=== PATIENT | male | born 2000 | race Caucasian/White ===

== ENCOUNTER 2020-04-12 22:39 | Emergency (ER) | payer OTHER ==
[2020-04-12] MEDS ORDERED: Zofran 4 MG/2 ML VIAL IV ONE (23:06)
[2020-04-12] MEDS ORDERED: Sodium Chloride 0.9% 1000 ML 1,000 ML IV STA ×2 (23:06→23:50)
[2020-04-12] MEDS ORDERED: Pepcid 20 MG VIAL IV ONE ×2 (23:10→23:32)
--- NOTE | 2020-04-12 23:10 | ERPHSYRPT ---
- History of Present Illness Time Seen by Provider: 04/12/20 23:08 Historian: patient, family Exam Limitations: no limitations Patient Subjective Stated Complaint: pt states that he began to have nausea, vomiting, diarrhea and abd pain on wednesday, pt states that he has had symptoms that comes and goes all week, pt states that he has abd pain right under the sternum, pt states that it feels like he has heartburn along with it Triage Nursing Assessment: pt ambulated into the er, pt is axo x3, c/o N,V,D and abd pressure under sternum, hypoactive bowel sounds in all quads, soft, obese abd, hypertensive, afebrile Physician History: pt states that he began to have nausea, vomiting, diarrhea and abd pain on wednesday, pt states that he has had symptoms that comes and goes all week, pt states that he has abd pain right under the sternum, pt states that it feels like he has heartburn along with it Timing/Duration: today Activities at Onset: none Quality: cramping Abdominal Pain Onset Location: epigastric Pain Radiation: no radiation Modifying Factors: Improves With: antacids Associated Symptoms: nausea, vomiting Previous symptoms: no prior history Allergies/Adverse Reactions: erythromycin base [Erythromycin Base] Allergy (Verified 04/12/20 23:06) RASH latex Allergy (Verified 04/12/20 23:06) Home Medications: Escitalopram Oxalate [Lexapro] 20 mg PO DAILY 04/12/20 [History] Hx Tetanus, Diphtheria Vaccination/Date Given: Yes Hx Influenza Vaccination/Date Given: No Hx Pneumococcal Vaccination/Date Given: No Travel Risk - International Travel Have you traveled outside of the country in past 3 weeks: No - Coronavirus Screening Are you exhibiting any of the following symptoms?: Yes Symptoms: Vomiting/Diarrhea Close contact with a COVID-19 positive Pt in past 14-21 Days: No - Review of Systems Constitutional: No Fever, No Chills Eyes: No Symptoms Ears, Nose, & Throat: No Symptoms Respiratory: No Cough, No Dyspnea Cardiac: No Chest Pain, No Edema, No Syncope Abdominal/Gastrointestinal: Abdominal Pain, Nausea, Vomiting, Diarrhea Genitourinary Symptoms: No Dysuria Musculoskeletal: No Back Pain, No Neck Pain Skin: No Rash Neurological: No Dizziness, No Focal Weakness, No Sensory Changes Psychological: No Symptoms Endocrine: No Symptoms All Other Systems: Reviewed and Negative - Past Medical History Pertinent Past Medical History: Yes Neurological History: No Pertinent History ENT History: No Pertinent History Cardiac History: No Pertinent History Respiratory History: No Pertinent History Endocrine Medical History: No Pertinent History Musculoskeletal History: No Pertinent History GI Medical History: Irritable Bowel Psycho-Social History: Anxiety, Depression, Other Other Medical History: PTSD - Past Surgical History Past Surgical History: No Neuro Surgical History: No Pertinent History Musculoskeletal: No Pertinent History - Social History Smoking Status: Never smoker Exposure to second hand smoke: No Drug Use: none Patient Lives Alone: No - Nursing Vital Signs Nursing Vital Signs: Initial Vital Signs Temperature 97.8 F 04/12/20 22:44 Pulse Rate 103 H 04/12/20 22:44 Respiratory Rate 18 04/12/20 22:44 Blood Pressure 164/104 04/12/20 22:44 O2 Sat by Pulse Oximetry 94 L 04/12/20 22:44 Pain Scale Pain Intensity 0 - Physical Exam General Appearance: no apparent distress, alert Eye Exam: PERRL/EOMI, eyes nml inspection Ears, Nose, Throat Exam: normal ENT inspection, pharynx normal, moist mucous membranes Neck Exam: normal inspection, non-tender, supple, full range of motion Respiratory Exam: normal breath sounds, lungs clear, No respiratory distress Cardiovascular Exam: regular rate/rhythm, normal heart sounds Gastrointestinal/Abdomen Exam: soft, No tenderness, No mass Back Exam: normal inspection, normal range of motion, No CVA tenderness, No vertebral tenderness Extremity Exam: normal inspection, normal range of motion, pelvis stable Neurologic Exam: alert, oriented x 3, cooperative, normal mood/affect, nml cerebellar function, sensation nml, No motor deficits Skin Exam: normal color, warm, dry SpO2: 94 - Course Nursing assessment & vital signs reviewed: Yes Ordered Tests: Active Orders 24 hr Category Date Time Status Surg Physician Asst STAT Care 04/12/20 22:59 Active Clean Catch Urine Specimen STAT Care 04/12/20 23:00 Active EKG-ER Only STAT Care 04/12/20 22:59 Active IV Insertion STAT Care 04/12/20 22:59 Active OBSTR/ACUTE ABDOMEN SERIES Stat Exams 04/12/20 23:07 Taken AMYLASE Stat Lab 04/12/20 23:00 Completed CBC W DIFF Stat Lab 04/12/20 23:00 Completed CMP Stat Lab 04/12/20 23:00 Completed D-DIMER QUANTITATIVE Stat Lab 04/12/20 23:00 Completed LIPASE Stat Lab 04/12/20 23:00 Completed Lactic Acid Stat Lab 04/12/20 23:00 Completed TROPONIN Q3H Lab 04/12/20 23:00 Completed UA W/RFX UR CULTURE Stat Lab 04/12/20 23:00 Completed Urine Triage Profile Stat Lab 04/12/20 23:00 Completed Medication Summary Generic Name Dose Route Start Last Admin Trade Name Freq PRN Reason Stop Dose Admin Sodium Chloride 1,000 mls @ 999 mls/hr 04/12/20 23:06 04/12/20 23:33 Sodium Chloride 0.9% 1000 Ml IV 04/13/20 00:06 999 mls/hr .Q1H1M STA Administration Sodium Chloride 1,000 mls @ 999 mls/hr 04/12/20 23:50 Sodium Chloride 0.9% 1000 Ml IV 04/13/20 00:50 .Q1H1M STA Discontinued Medications Generic Name Dose Route Start Last Admin Trade Name Freq PRN Reason Stop Dose Admin Famotidine 20 mg 04/12/20 23:10 04/12/20 23:33 Pepcid 20 Mg Vial IV 04/12/20 23:11 20 mg STAT ONE Administration Famotidine Confirm 04/12/20 23:32 Pepcid 20 Mg Vial Administered 04/12/20 23:33 Dose 20 mg IV .STK-MED ONE Sodium Chloride Confirm 04/12/20 23:32 Sodium Chloride 0.9% 1000 Ml Administered 04/12/20 23:33 Dose 1,000 mls @ ud .ROUTE .STK-MED ONE Ondansetron HCl 4 mg 04/12/20 23:06 04/12/20 23:32 Zofran 4 Mg/2 Ml Vial IV 04/12/20 23:07 4 mg STAT ONE Administration Ondansetron HCl Confirm 04/12/20 23:32 Zofran 4 Mg/2 Ml Vial Administered 04/12/20 23:33 Dose 4 mg .ROUTE .STK-MED ONE Lab/Rad Data: Laboratory Result Diagrams 04/12/20 23:00 04/12/20 23:00 Laboratory Results 04/12/20 04/12/20 04/12/20 Range/Units 23:00 23:00 23:00 WBC (4.0-10.5) K/mm3 RBC (4.1-5.6) M/mm3 Hgb (12.5-18.0) gm/dl Hct (42-50) % MCV (78-100) fl MCH (26-32) pg MCHC (32-36) g/dl RDW (11.5-14.0) % Plt Count (150-450) K/mm3 MPV (7.5-11.0) fl Gran % (36.0-66.0) % Eos # (Auto) (0-0.5) Absolute Lymphs (auto) (1.0-4.6) Absolute Monos (auto) (0.0-1.3) Lymphocytes % (24.0-44.0) % Monocytes % (0.0-12.0) % Eosinophils % (0.00-5.0) % Basophils % (0.0-0.4) % Absolute Granulocytes (1.4-6.9) Basophils # (0-0.4) D-Dimer (215-500) ng/mL Sodium (137-145) mmol/L Potassium (3.5-5.1) mmol/L Chloride (98-107) mmol/L Carbon Dioxide (22-30) mmol/L Anion Gap (5-15) MEQ/L BUN (9-20) mg/dL Creatinine (0.66-1.25) mg/dL Estimated GFR ML/MIN Glucose (74-106) mg/dL Lactic Acid (0.4-2.0) Calcium (8.4-10.2) mg/dL Total Bilirubin (0.2-1.3) mg/dL AST (17-59) U/L ALT (0-50) U/L Alkaline Phosphatase (38-126) U/L Troponin I (0.000-0.034) ng/mL Serum Total Protein (6.3-8.2) g/dL Albumin (3.5-5.0) g/dL Amylase 57 (30-110) U/L Lipase 38 (23-300) U/L Urine Color YELLOW (YELLOW) Urine Appearance CLEAR (CLEAR) Urine pH 6.0 (5-6) Ur Specific [place] 1.031 (1.005-1.025) Urine Protein 30 (Negative) Urine Ketones NEGATIVE (NEGATIVE) Urine Blood NEGATIVE (0-5) Mike/ul Urine Nitrite NEGATIVE (NEGATIVE) Urine Bilirubin NEGATIVE (NEGATIVE) Urine Urobilinogen 4 (0-1) mg/dL Ur Leukocyte Esterase NEGATIVE (NEGATIVE) Urine WBC (Auto) NONE (0-5) /HPF Urine RBC (Auto) NONE (0-2) /HPF U Epithel Cells (Auto) NONE (FEW) /HPF Urine Bacteria (Auto) NONE (NEGATIVE) /HPF Urine Mucus (Auto) SLIGHT (NEGATIVE) /HPF Urine Culture Reflexed NO (NO) Urine Glucose NEGATIVE (NEGATIVE) mg/dL Urine Opiates Level NEGATIVE (NEGATIVE) Ur Methadone NEGATIVE (NEGATIVE) Urine Barbiturates NEGATIVE (NEGATIVE) Ur Phencyclidine (PCP) NEGATIVE (NEGATIVE) Urine Amphetamine NEGATIVE (NEGATIVE) U Benzodiazepine Level NEGATIVE (NEGATIVE) Urine Cocaine NEGATIVE (NEGATIVE) Urine Marijuana (THC) NEGATIVE (NEGATIVE) 04/12/20 04/12/20 04/12/20 Range/Units 23:00 23:00 23:00 WBC (4.0-10.5) K/mm3 RBC (4.1-5.6) M/mm3 Hgb (12.5-18.0) gm/dl Hct (42-50) % MCV (78-100) fl MCH (26-32) pg MCHC (32-36) g/dl RDW (11.5-14.0) % Plt Count (150-450) K/mm3 MPV (7.5-11.0) fl Gran % (36.0-66.0) % Eos # (Auto) (0-0.5) Absolute Lymphs (auto) (1.0-4.6) Absolute Monos (auto) (0.0-1.3) Lymphocytes % (24.0-44.0) % Monocytes % (0.0-12.0) % Eosinophils % (0.00-5.0) % Basophils % (0.0-0.4) % Absolute Granulocytes (1.4-6.9) Basophils # (0-0.4) D-Dimer < 215 L (215-500) ng/mL Sodium (137-145) mmol/L Potassium (3.5-5.1) mmol/L Chloride (98-107) mmol/L Carbon Dioxide (22-30) mmol/L Anion Gap (5-15) MEQ/L BUN (9-20) mg/dL Creatinine (0.66-1.25) mg/dL Estimated GFR ML/MIN Glucose (74-106) mg/dL Lactic Acid 2.3 H (0.4-2.0) Calcium (8.4-10.2) mg/dL Total Bilirubin (0.2-1.3) mg/dL AST (17-59) U/L ALT (0-50) U/L Alkaline Phosphatase (38-126) U/L Troponin I < 0.012 (0.000-0.034) ng/mL Serum Total Protein (6.3-8.2) g/dL Albumin (3.5-5.0) g/dL Amylase (30-110) U/L Lipase (23-300) U/L Urine Color (YELLOW) Urine Appearance (CLEAR) Urine pH (5-6) Ur Specific [place] (1.005-1.025) Urine Protein (Negative) Urine Ketones (NEGATIVE) Urine Blood (0-5) Mike/ul Urine Nitrite (NEGATIVE) Urine Bilirubin (NEGATIVE) Urine Urobilinogen (0-1) mg/dL Ur Leukocyte Esterase (NEGATIVE) Urine WBC (Auto) (0-5) /HPF Urine RBC (Auto) (0-2) /HPF U Epithel Cells (Auto) (FEW) /HPF Urine Bacteria (Auto) (NEGATIVE) /HPF Urine Mucus (Auto) (NEGATIVE) /HPF Urine Culture Reflexed (NO) Urine Glucose (NEGATIVE) mg/dL Urine Opiates Level (NEGATIVE) Ur Methadone (NEGATIVE) Urine Barbiturates (NEGATIVE) Ur Phencyclidine (PCP) (NEGATIVE) Urine Amphetamine (NEGATIVE) U Benzodiazepine Level (NEGATIVE) Urine Cocaine (NEGATIVE) Urine Marijuana (THC) (NEGATIVE) 04/12/20 04/12/20 Range/Units 23:00 23:00 WBC 11.2 H (4.0-10.5) K/mm3 RBC 5.25 (4.1-5.6) M/mm3 Hgb 15.4 (12.5-18.0) gm/dl Hct 45.6 (42-50) % MCV 86.9 (78-100) fl MCH 29.3 (26-32) pg MCHC 33.8 (32-36) g/dl RDW 13.4 (11.5-14.0) % Plt Count 280 (150-450) K/mm3 MPV 11.4 H (7.5-11.0) fl Gran % 60.5 (36.0-66.0) % Eos # (Auto) 0.17 (0-0.5) Absolute Lymphs (auto) 3.44 (1.0-4.6) Absolute Monos (auto) 0.78 (0.0-1.3) Lymphocytes % 30.7 (24.0-44.0) % Monocytes % 7.0 (0.0-12.0) % Eosinophils % 1.5 (0.00-5.0) % Basophils % 0.3 (0.0-0.4) % Absolute Granulocytes 6.77 (1.4-6.9) Basophils # 0.03 (0-0.4) D-Dimer (215-500) ng/mL Sodium 139 (137-145) mmol/L Potassium 3.9 (3.5-5.1) mmol/L Chloride 106 (98-107) mmol/L Carbon Dioxide 23 (22-30) mmol/L Anion Gap 13.5 (5-15) MEQ/L BUN 13 (9-20) mg/dL Creatinine 0.83 (0.66-1.25) mg/dL Estimated GFR > 60.0 ML/MIN Glucose 146 H (74-106) mg/dL Lactic Acid (0.4-2.0) Calcium 9.0 (8.4-10.2) mg/dL Total Bilirubin 0.70 (0.2-1.3) mg/dL AST 41 (17-59) U/L ALT 48 (0-50) U/L Alkaline Phosphatase 97 (38-126) U/L Troponin I (0.000-0.034) ng/mL Serum Total Protein 7.8 (6.3-8.2) g/dL Albumin 4.5 (3.5-5.0) g/dL Amylase (30-110) U/L Lipase (23-300) U/L Urine Color (YELLOW) Urine Appearance (CLEAR) Urine pH (5-6) Ur Specific [place] (1.005-1.025) Urine Protein (Negative) Urine Ketones (NEGATIVE) Urine Blood (0-5) Mike/ul Urine Nitrite (NEGATIVE) Urine Bilirubin (NEGATIVE) Urine Urobilinogen (0-1) mg/dL Ur Leukocyte Esterase (NEGATIVE) Urine WBC (Auto) (0-5) /HPF Urine RBC (Auto) (0-2) /HPF U Epithel Cells (Auto) (FEW) /HPF Urine Bacteria (Auto) (NEGATIVE) /HPF Urine Mucus (Auto) (NEGATIVE) /HPF Urine Culture Reflexed (NO) Urine Glucose (NEGATIVE) mg/dL Urine Opiates Level (NEGATIVE) Ur Methadone (NEGATIVE) Urine Barbiturates (NEGATIVE) Ur Phencyclidine (PCP) (NEGATIVE) Urine Amphetamine (NEGATIVE) U Benzodiazepine Level (NEGATIVE) Urine Cocaine (NEGATIVE) Urine Marijuana (THC) (NEGATIVE) - Progress Progress: improved Counseled pt/family regarding: lab results, diagnosis, need for follow-up, rad results - Departure Departure Disposition: Home Clinical Impression: Gastroenteritis and colitis, viral Condition: Stable Critical Care Time: No Referrals: ANIKA BLANCO CONTINUITY READER [NON-STAFF PHY W/O PRIVILEGES] - Instructions: Viral Gastroenteritis Additional Instructions: Discharge/Care Plan LEILANI PABLO was seen on 04/12/20 in the Emergency Room. The patient was counseled regarding Diagnosis,Lab results, Imaging studies, need for follow up and when to return to the Emergency Room. Prescriptions given: Discharge Note I have spoken with the patient and/or caregivers. I have explained the patient's condition, diagnosis and treatment plan based on the information available to me at this time. I have answered the patient's and/or caregiver's questions and addressed any concerns. The patient and/or caregivers have as good understanding of the patient's diagnosis, condition and treatment plan as can be expected at this point. The vital signs have been stable. The patient's condition is stable and appropriate for discharge from the emergency department. The patient will pursue further outpatient evaluation with the primary care physician or other designated or consulting physician as outlined in the discharge instructions. The patient and/or caregivers are agreeable to this plan of care and follow-up instructions have been explained in detail. The patient and/or caregivers have received these instruction. The patient/and or caregivers are aware that any significant change in condition or worsening of symptoms should prompt an immediate return to this or the closest emergency department or call 911. LEILANI PABLO was seen on 04/12/20 n the Emergency Room. At that time you were treated for an emergent condition, during your visit Laboratory, Radiology and/or other procedures may have been ordered. It is very important that you follow-up with your Primary Care Physician ZULEYMA DANIEL within the next 24- 48 hours to review your Emergency Room visit and the final results of testing that was ordered. Some test results such as Urine Cultures, Blood Cultures, and other cultures if ordered will not be finalized for 24-48 hours. If you do not have a Primary Care Provider please call the medical records department at [phone] ext [phone] to obtain a copy of your results or you may sign into our patient portal to obtain these results by visiting us @ [email or web address] and completing the following steps: 1. Click on the Patient Portal link 2. Click the Patient Self Enrollment Link to complete the enrollment form and entering your 3. Once the enrollment form is completed you will receive an email with a temporary ID and password at the email address you provided. 4. Next choose a user name and password. Your user name must be at least 4 characters long and your password must be at least 4 characters long. 5. Choose a security question from the list and provide your answer to the question. If you already have signed into the Health Portal you may access your Health Care Information 19/04 by the following steps: 1. Login to our website @ [email or web address] 2. Enter your original user name and password. FAQS The [facility] Health Portal is an online tool that contains your Lab Results, Ra diology Reports, Visit History, Discharge Instructions and Health Summary Lab and Radiology Results will not be available for 72 hours on the portal. The Portal is a secure site, passwords are encryted and URLs are re-written so they cannot be copied and pasted. You and authorized family members are the only ones who can access your Portal. Also there is a timeout feature that protects your information if you leave the Portal page open. If you have technical difficulty please use the Contact Us link on the page this will allow you to submit any questions you have regarding the Portal or you may contact the Medical Record Department at [phone] ext [phone]. Prescriptions: Promethazine HCl 25 mg [Phenergan 25 mg] 25 mg PO QID #20 tablet
[2020-04-12 23:17] LABS: Absolute Neutrophil Ct (ANC) 6.77 (1.4-6.9); BASOPHIL % 0.3 % (0.0-0.4); Basophil (Absolute #) 0.03 (0-0.4); Eosinophil % 1.5 % (0.00-5.0); Eosinophil (Absolute #) 0.17 (0-0.5); Hematocrit 45.6 % (42-50); Hemoglobin 15.4 gm/dl (12.5-18.0); Lymphocyte (Absolute #) 3.44 (1.0-4.6); Lymphocytes % 30.7 % (24.0-44.0); Mean Cell Volume 86.9 fl (78-100); Mean Corpuscular Hemoglobin 29.3 pg (26-32); Mean Corpuscular Hgb Concent. 33.8 g/dl (32-36); Mean Platelet Volume 11.4 fl (7.5-11.0); Monocyte (Absolute #) 0.78 (0.0-1.3); Neutrophil % 60.5 % (36.0-66.0); Platelet Count 280 K/mm3 (150-450); Red Blood Count 5.25 M/mm3 (4.1-5.6); Red Cell Distribution Width 13.4 % (11.5-14.0); White Blood Count 11.2 K/mm3 (4.0-10.5)
[2020-04-12 23:28] LABS: Appearance CLEAR (CLEAR); Bilirubin NEGATIVE (NEGATIVE); Blood NEGATIVE Ery/ul (0-5); Glucose NEGATIVE (NEGATIVE); Ketones NEGATIVE (NEGATIVE); Leukocyte Esterase NEGATIVE (NEGATIVE); Mucus SLIGHT /HPF (NEGATIVE); Nitrite NEGATIVE (NEGATIVE); Protein,Urine Dip 30 (Negative); Specific Gravity 1.031 (1.005-1.025); Urobilinogen 4 mg/dL (0-1)
[2020-04-12] MEDS ORDERED: Zofran 4 MG/2 ML VIAL ONE (23:32)
[2020-04-12] MEDS ORDERED: Sodium Chloride 0.9% 1000 ML 1,000 ML ONE (23:32)
[2020-04-12 23:35] LABS: Amphetamine,Urine NEGATIVE (NEGATIVE); Barbiturate,Urine NEGATIVE (NEGATIVE); Benzodiazepine,Urine NEGATIVE (NEGATIVE); Cocaine,Urine NEGATIVE (NEGATIVE); Methadone,Urine NEGATIVE (NEGATIVE); Opiate,Urine NEGATIVE (NEGATIVE); PCP,Urine NEGATIVE (NEGATIVE); THC,Urine NEGATIVE (NEGATIVE)
[2020-04-12 23:36] LABS: AMYLASE 57 U/L (30-110); LIPASE 38 U/L (23-300)
[2020-04-12 23:38] LABS: ALBUMIN 4.5 g/dL (3.5-5.0); ALKALINE PHOSPHATASE 97 U/L (38-126); ANION GAP 13.5 MEQ/L (5-15); BLOOD UREA NITROGEN 13 mg/dL (9-20); CHLORIDE 106 mmol/L (98-107); Carbon Dioxide 23 mmol/L (22-30); Creatinine 1 0.83 mg/dL (0.66-1.25); Glucose 146 mg/dL (74-106); Potassium 3.9 mmol/L (3.5-5.1); SGOT/AST 41 U/L (17-59); SGPT/ALT 48 U/L (0-50); SODIUM 139 mmol/L (137-145); Total Protein 7.8 g/dL (6.3-8.2)
[2020-04-13 00:19] VITALS: BP 141/78; PULSE 74; O2SAT 99
--- NOTE | 2020-04-13 07:58 | XRAY ---
Indication: Epigastric pain and nausea. Reflux. Comparison: Chest exam June 06, 2014. 2 view abdomen nonacute and nonobstructed. Solid organs unremarkable. Osseous structures intact with minimal double curvature thoracolumbar scoliosis. Single frontal chest demonstrates normal heart, lungs, and bony thorax. Impression: Negative abdomen. Normal 1 view chest. Minimal scoliosis.
== END 2020-04-13 00:30 | disposition home or self-care (01) ==
LOC: ED 22:39
DX: A08.4 Viral intestinal infection, unspecified (principal)
CPT/HCPCS: 36000; 36415; 74022; 80053; 80307; 81001; 82150; 83605; 83690; 84484; 85025; 85379; 93005; 93041; 96360; 96374; 96375; 99284; J2405

== ENCOUNTER 2023-08-13 19:26 | Emergency (ER) | payer OTHER ==
[2023-08-13 19:36] VITALS: TEMP 98.2; O2SAT 95
[2023-08-13] MEDS ORDERED: VISTARIL 100MG/2ML IM ONE ×2 (19:43→19:46)
--- NOTE | 2023-08-13 19:54 | ERPHSYRPT ---
- History of Present Illness Source: patient Exam Limitations: no limitations Patient Subjective Stated Complaint: pt states "I have panic attacks from ptsd and today I took my ativan that I normally take at home for it and it hasn't helped." Triage Nursing Assessment: pt ambulatory to bed by self with steady gait, pt alert and oriented x3, skin pink, warm, and diaphoretic, pt c/o panic attack that started today, pt normally takes ativan 0.5 mg as needed for anxiety and states it is not helping, last dose was around 1600, pt has hx of ptsd, anxiety, and depression, pt is COVID+ and states that is why he is anxious Physician History: 23-year-old male w history of anxiety and is currently disabled due to PTSD presents with a panic attack occurring shortly before ER arrival. Patient states that he took a Xanax at home without any relief. Patient states that he is shaking and very jittery. He denies any chest pain or shortness of breath this time. Patient currently is COVID-19 positive with limited symptomatology.. He denies any suicidal or homicidal ideation at this time. Timing/Duration: today Severity of Symptoms-Max: moderate Severity of Symptoms-Current: moderate Context related to: other (Unstimulated panic attacks) Suicidal thoughts: other (No suicidal thoughts) Associated Symptoms: denies symptoms Previous symptoms: same symptoms as today Allergies/Adverse Reactions: erythromycin base [Erythromycin Base] Allergy (Verified 08/13/23 19:34) RASH latex Allergy (Verified 08/13/23 19:33) Home Medications: Escitalopram Oxalate [Lexapro] 20 mg PO DAILY 04/12/20 [History] Lorazepam 0.5 mg [Ativan 0.5 MG] 0.5 mg PO DAILY 08/13/23 [History] Hx Tetanus, Diphtheria Vaccination/Date Given: Yes Hx Influenza Vaccination/Date Given: No Hx Pneumococcal Vaccination/Date Given: No Immunizations Up to Date: No Travel Risk - International Travel Have you traveled outside of the country in past 3 weeks: No - Coronavirus Screening Are you exhibiting any of the following symptoms?: Yes Symptoms: Cough: New Onset, Headaches/Body Aches/Fatigue Close contact with a COVID-19 positive Pt in past 14-21 Days: Yes - Vaccine Status Have you recieved a Covid-19 vaccination: No - Past Medical History Pertinent Past Medical History: Yes Neurological History: No Pertinent History ENT History: No Pertinent History Cardiac History: No Pertinent History Respiratory History: No Pertinent History Endocrine Medical History: No Pertinent History Musculoskeletal History: No Pertinent History GI Medical History: Irritable Bowel Psycho-Social History: Anxiety, Depression, Other Other Medical History: PTSD - Past Surgical History Past Surgical History: No Neuro Surgical History: No Pertinent History Cardiac: No Pertinent History Respiratory: No Pertinent History Gastrointestinal: No Pertinent History Genitourinary: No Pertinent History Musculoskeletal: No Pertinent History - Social History Smoking Status: Never smoker Exposure to second hand smoke: No Drug Use: none Patient Lives Alone: No - Review of Systems Constitutional: No Symptoms Eyes: No Symptoms Ears, Nose, & Throat: No Symptoms Respiratory: No Symptoms Cardiac: No Symptoms Abdominal/Gastrointestinal: No Symptoms Genitourinary Symptoms: No Symptoms Musculoskeletal: No Symptoms Skin: No Symptoms Neurological: No Symptoms Psychological: No Symptoms, Anxiety Endocrine: No Symptoms Hematologic/Lymphatic: No Symptoms Immunological/Allergic: No Symptoms - Nursing Vital Signs Nursing Vital Signs: Initial Vital Signs Temperature 98.2 F 08/13/23 19:35 Pulse Rate 115 H 08/13/23 19:35 Respiratory Rate 18 08/13/23 19:35 Blood Pressure 165/111 08/13/23 19:35 O2 Sat by Pulse Oximetry 95 08/13/23 19:35 Pain Scale Pain Intensity 0 Tachycardic and hypertensive. - Physical Exam General Appearance: no apparent distress, anxiety Eyes, Ears, Nose, Throat Exam: normal ENT inspection, TMs normal, pharynx normal, moist mucous membranes Neck Exam: normal inspection, non-tender, supple, full range of motion, No Brudzinski, No Kernig's, No meningismus, No carotid bruit Respiratory Exam: normal breath sounds, lungs clear, airway intact, No respira tory distress Cardiovascular Exam: tachycardia, capillary refill <2 sec, No murmur Gastrointestinal/Abdominal Exam: soft, normal bowel sounds, No tenderness Extremities Exam: normal inspection, normal range of motion, No evidence of injury Peripheral Pulses: carotid (R): 2+, carotid (L): 2+ Current Suicidality: other (Without any suicidal ideations.) Neurological Exam: alert, top lift cutter II-XII nml as tested, oriented x 3 Appearance: appropriate appearance, appropriate insight Behavior/Eye Contact/Speech: alert & cooperative, good eye contact, normal speech Thoughts/Hallucinations: normal thought pattern, No no apparent hallucination, No auditory hallucinations, No delusions, No flight of ideas Skin Exam: normal color, warm, dry SpO2 Interpretation: normal SpO2: 95 O2 Delivery: Room Air - Course Nursing assessment & vital signs reviewed: Yes Ordered Tests: Medication Summary Discontinued Medications Generic Name Dose Route Start Last Admin Trade Name Mian PRN Reason Stop Dose Admin Hydroxyzine HCl 50 mg 08/13/23 19:43 08/13/23 19:47 Hydroxyzine Hcl 100 Mg/2 Ml Vial IM 08/13/23 19:44 50 mg ONCE ONE Administration Hydroxyzine HCl Confirm 08/13/23 19:46 Hydroxyzine Hcl 100 Mg/2 Ml Vial Administered 08/13/23 19:47 Dose 100 mg IM .STK-MED ONE - Progress Progress: improved Progress Note: 08/13/23 20:11 Nursing note and vital signs reviewed. No food or housing insecurities noted. Patient given 50 mg IM Vistaril. Patient has an exacerbation of his chronic anxiety without any evidence of new somatic etiology. He has no chest pain or shortness of breath at this time. BP elevated upon initial presentation but decreasing upon discharge. Patient advised follow-up with his PCP about his blood pressure. Serial neuro exams within normal limits during his visit. Counseled pt/family regarding: diagnosis, need for follow-up Medical Desision Making - Risk of complications The pt has a mod risk of morbidity or mortality based on: Need for prescription drug management - Departure Departure Disposition: Home Clinical Impression: Panic attack Condition: Stable Critical Care Time: No Referrals: MANAN DANIEL [Primary Care Provider] - Follow up/PCP as directed Instructions: Anxiety, Adult (DC) Additional Instructions: Follow-up with your family MD your mental health therapist. Return to ER as needed. Continue current medications at home. Watch blood pressure closely.
[2023-08-13 20:04] VITALS: BP 170/99; PULSE 105; RESP 17
== END 2023-08-13 20:15 | disposition home or self-care (01) ==
LOC: ED 19:26
DX: F41.0 Panic disorder [episodic paroxysmal anxiety] (principal); F43.10 Post-traumatic stress disorder, unspecified; U07.1 COVID-19; Z28.310 Unvaccinated for COVID-19; Z79.899 Other long term (current) drug therapy
CPT/HCPCS: 96372; 99283; J3410

== ENCOUNTER 2023-08-23 05:47 | Emergency (ER) | payer OTHER ==
[2023-08-23 06:06] VITALS: TEMP 97.7
--- NOTE | 2023-08-23 06:12 | ERPHSYRPT ---
<HERMINIO EDOUARD - Last Filed: 08/23/23 07:20> - History of Present Illness Time Seen by Provider: 08/23/23 06:10 Historian: patient Patient Subjective Stated Complaint: pt states he was diagnosed with covid 2 weeks ago. today has been increasingly short of breath and c/o tightness in his chest. Triage Nursing Assessment: pt alert and oriented, answers questions approp. pt ambulates into room with steady gait noted. respirations nonlabored with lungs cta bilat. skin warm and moist. heart rate 112-125 sinus tach on monitor. Physician History: 23 years old male who is morbidly obese, past medical history of asthma presented emergency room complaining of coughing, shortness of breath and chest pain. The patient states that he was diagnosed with a COVID-19 infection 2 weeks ago he was placed on Paxlovid. A week ago his family doctor placed him on cefdinir and prednisone for coughing and shortness of breath The patient is still coughing, his cough is productive but he has no more fever or chills. His chest pain started yesterday night worse when he takes deep breaths. The chest pain got worse through 3 AM today. Chest pain is bilateral, sharp nonradiating. The patient has not taken any pain medications. He denies any abdominal pain nausea or vomiting. Allergies/Adverse Reactions: erythromycin base [Erythromycin Base] Allergy (Verified 08/13/23 19:34) RASH latex Allergy (Verified 08/13/23 19:33) Home Medications: Escitalopram Oxalate [Lexapro] 20 mg PO DAILY 04/12/20 [History] Lorazepam 0.5 mg [Ativan 0.5 MG] 0.5 mg PO DAILY 08/13/23 [History] Cefdinir 300 mg PO DAILY 08/23/23 [History] Prednisone 20 mg [Deltasone 20 mg] 20 mg PO DAILY 08/23/23 [History] Hx Tetanus, Diphtheria Vaccination/Date Given: Yes Hx Influenza Vaccination/Date Given: No Hx Pneumococcal Vaccination/Date Given: No Immunizations Up to Date: Yes Travel Risk - International Travel Have you traveled outside of the country in past 3 weeks: No - Coronavirus Screening Are you exhibiting any of the following symptoms?: Yes Symptoms: Cough: New Onset, Shortness of Breath Close contact with a COVID-19 positive Pt in past 14-21 Days: Yes - Vaccine Status Have you recieved a Covid-19 vaccination: No - Review of Systems Constitutional: No Fever, No Chills Eyes: No Symptoms Ears, Nose, & Throat: No Symptoms Respiratory: Cough, Dyspnea Cardiac: Chest Pain Abdominal/Gastrointestinal: No Abdominal Pain, No Nausea, No Vomiting, No Diarrhea Genitourinary Symptoms: No Dysuria Musculoskeletal: No Back Pain, No Neck Pain Skin: No Rash Neurological: No Dizziness, No Focal Weakness, No Sensory Changes Psychological: No Symptoms Endocrine: No Symptoms All Other Systems: Reviewed and Negative - Past Medical History Pertinent Past Medical History: Yes Neurological History: No Pertinent History ENT History: No Pertinent History Cardiac History: No Pertinent History Respiratory History: No Pertinent History Endocrine Medical History: No Pertinent History Musculoskeletal History: No Pertinent History GI Medical History: Irritable Bowel Psycho-Social History: Anxiety, Depression, Other Other Medical History: PTSD, recent covid - Past Surgical History Past Surgical History: No Neuro Surgical History: No Pertinent History Cardiac: No Pertinent History Respiratory: No Pertinent History Gastrointestinal: No Pertinent History Genitourinary: No Pertinent History Musculoskeletal: No Pertinent History - Social History Smoking Status: Never smoker Exposure to second hand smoke: No Drug Use: none Patient Lives Alone: No - Physical Exam General Appearance: no apparent distress, alert Eye Exam: PERRL/EOMI, eyes nml inspection Ears, Nose, Throat Exam: normal ENT inspection, moist mucous membranes Neck Exam: normal inspection, non-tender, supple, full range of motion Respiratory Exam: normal breath sounds, lungs clear, No respiratory distress Cardiovascular Exam: regular rate/rhythm, normal heart sounds Gastrointestinal/Abdomen Exam: soft, No tenderness, No mass Back Exam: normal inspection, No CVA tenderness, No vertebral tenderness Extremity Exam: normal inspection, normal range of motion Neurologic Exam: alert, oriented x 3, cooperative, normal mood/affect, sensation nml, No motor deficits Skin Exam: normal color, warm, dry SpO2: 94 - Course Nursing assessment & vital signs reviewed: Yes EKG Interpreted by Me: RATE (105), Sinus Tach - Progress Progress Note: 08/23/23 06:12 23 years old male who is morbidly obese history of asthma. Diagnosed COVID-19 infection 2 weeks ago treated with Paxlovid, currently on cefdinir and weaning dose prednisone. The patient presented emergency room complaining of coughing s hortness of breath and bilateral chest pain. Emergency room course On arrival the patient is an EKG done which revealed sinus tachycardia rate 105 bpm. Check CBC, CMP, troponin, D-dimer, portable chest x-ray. 08/23/23 07:19 The case will be endorsed to Dr. Mayfield at the change of shift for further management and disposition. 08/23/23 07:20 - Departure Clinical Impression: Dyspnea, Chest pain Condition: Stable Referrals: MANAN DANIEL [Primary Care Provider] - Follow up/PCP as directed Instructions: Shortness of Breath (Dyspnea) (DC), Chest Pain (DC), COVID-19 (D C) Additional Instructions: Follow-up with your family MD in 1 to 2 days. Rest. Fluids. Motrin/Tylenol for pain or temperature greater 100.5. Return to ER for increasing chest pain, increasing shortness of breath, or temperature greater 100.5. <MARIA LUISA MAYFIELD - Last Filed: 08/23/23 10:29> - History of Present Illness Physician History: Patient is a 23-year-old gentleman with midsternal chest pain beginning at 2 AM. Pain does not radiate, described as a dull ache, is currently 4 out of 10 on pain scale. Pain has been up to a 7 out of 10 and was accompanied by dyspnea and diaphoresis. He denies any nausea or vomiting. Patient was diagnosed with COVID-19 approximately 2 weeks ago and still has a cough and mild coryza. Fevers denied. Past medical history includes hypertension anxiety. He does not smoke. Patient is disabled due to PTSD. Timing/Duration: today Activities at Onset: rest Location: substernal Chest Pain Radiation: no radiation Severity of Pain-Max: severe Severity of Pain-Current: moderate Modifying Factors: Improves With: nothing Associated Symptoms: cough Prior Chest Pain/Cardiac Workup: non-cardiac Nitro Today/Relief: no nitro taken today Aspirin Treatment Today: no aspirin today - Nursing Vital Signs Nursing Vital Signs: Initial Vital Signs Temperature 97.7 F 08/23/23 05:49 Pulse Rate 114 H 08/23/23 05:49 Respiratory Rate 20 08/23/23 05:49 Blood Pressure 151/101 08/23/23 05:49 O2 Sat by Pulse Oximetry 94 L 08/23/23 05:49 Pain Scale Pain Intensity 0 - CT Exams Chest CT Interpretation: Tele-radiologist Report (CTA of chest negative per rad) Ordered Tests: Active Orders 24 hr Category Date Time Status Geoscientist STAT Care 08/23/23 06:08 Active EKG-ER Only STAT Care 08/23/23 06:07 Active IV Insertion STAT Care 08/23/23 06:07 Active CHEST 1 VIEW (PORTABLE) Stat Exams 08/23/23 06:08 Completed CHEST WITH CONTRAST [CT] Stat Exams 08/23/23 08:21 Completed CBC W DIFF Stat Lab 08/23/23 06:25 Completed CMP Stat Lab 08/23/23 06:25 Completed D-DIMER QUANTITATIVE Stat Lab 08/23/23 06:25 Completed PROTIME WITH INR Stat Lab 08/23/23 06:25 Completed PTT Stat Lab 08/23/23 06:25 Completed TROPONIN Q4H Lab 08/23/23 06:25 Completed TROPONIN Q4H Lab 08/23/23 09:45 Completed TROPONIN Q4H Lab 08/23/23 14:15 Ordered Lab/Rad Data: Laboratory Result Diagrams 08/23/23 06:25 08/23/23 06:25 Laboratory Results 08/23/23 08/23/23 08/23/23 Range/Units 09:45 06:25 06:25 WBC (4.0-10.5) x10^3/uL RBC (4.1-5.6) x10^6/uL Hgb (12.5-18.0) g/dL Hct (42-50) % MCV (78-100) fL MCH (26-32) pg MCHC (32-36) g/dL RDW (11.5-14.0) % Plt Count (150-450) x10^3/uL MPV (7.5-11.0) fL Gran % (36.0-66.0) % Immature Gran % (Auto) (0.00-0.4) % Nucleat RBC Rel Count (0.00-0.1) % Eos # (Auto) (0-0.5) x10^3/uL Immature Gran # (Auto) (0.00-0.03) x10^3u/L Absolute Lymphs (auto) (1.0-4.6) x10^3/uL Absolute Monos (auto) (0.0-1.3) x10^3/uL Absolute Nucleated RBC (0.00-0.01) x10^3u/L Lymphocytes % (24.0-44.0) % Monocytes % (0.0-12.0) % Eosinophils % (0.00-5.0) % Basophils % (0.0-0.4) % Absolute Granulocytes (1.4-6.9) x10^3/uL Basophils # (0-0.4) x10^3/uL PT 10.9 (9.4-12.5) SECONDS INR 1.00 (0.8-3.0) APTT 25.4 (25.1-36.5) SECONDS D-Dimer < 0.19 (0.0-0.50) mg/L Sodium (137-145) mmol/L Potassium (3.5-5.1) mmol/L Chloride (98-107) mmol/L Carbon Dioxide (22-30) mmol/L Anion Gap (5-15) MEQ/L BUN (9-20) mg/dL Creatinine (0.66-1.25) mg/dL Estimated GFR ML/MIN Glucose (74-106) mg/dL Calcium (8.4-10.2) mg/dL Total Bilirubin (0.2-1.3) mg/dL AST (17-59) U/L ALT (0-50) U/L Alkaline Phosphatase (38-126) U/L Troponin I < 0.012 < 0.012 (0.000-0.034) ng/mL Serum Total Protein (6.3-8.2) g/dL Albumin (3.5-5.0) g/dL 08/23/23 08/23/23 Range/Units 06:25 06:25 WBC 13.1 H (4.0-10.5) x10^3/uL RBC 5.72 H (4.1-5.6) x10^6/uL Hgb 17.1 (12.5-18.0) g/dL Hct 51.0 H (42-50) % MCV 89.2 (78-100) fL MCH 29.9 (26-32) pg MCHC 33.5 (32-36) g/dL RDW 12.7 (11.5-14.0) % Plt Count 256 (150-450) x10^3/uL MPV 10.7 (7.5-11.0) fL Gran % 83.5 H (36.0-66.0) % Immature Gran % (Auto) 0.5 H (0.00-0.4) % Nucleat RBC Rel Count 0.0 (0.00-0.1) % Eos # (Auto) 0.01 (0-0.5) x10^3/uL Immature Gran # (Auto) 0.07 H (0.00-0.03) x10^3u/L Absolute Lymphs (auto) 1.53 (1.0-4.6) x10^3/uL Absolute Monos (auto) 0.52 (0.0-1.3) x10^3/uL Absolute Nucleated RBC 0.00 (0.00-0.01) x10^3u/L Lymphocytes % 11.7 L (24.0-44.0) % Monocytes % 4.0 (0.0-12.0) % Eosinophils % 0.1 (0.00-5.0) % Basophils % 0.2 (0.0-0.4) % Absolute Granulocytes 10.94 H (1.4-6.9) x10^3/uL Basophils # 0.02 (0-0.4) x10^3/uL PT (9.4-12.5) SECONDS INR (0.8-3.0) APTT (25.1-36.5) SECONDS D-Dimer (0.0-0.50) mg/L Sodium 139 (137-145) mmol/L Potassium 4.2 (3.5-5.1) mmol/L Chloride 106 (98-107) mmol/L Carbon Dioxide 20 L (22-30) mmol/L Anion Gap 16.4 H (5-15) MEQ/L BUN 12 (9-20) mg/dL Creatinine 0.73 (0.66-1.25) mg/dL Estimated GFR 129.5 ML/MIN Glucose 145 H (74-106) mg/dL Calcium 9.8 (8.4-10.2) mg/dL Total Bilirubin 1.00 (0.2-1.3) mg/dL AST 26 (17-59) U/L ALT 72 H (0-50) U/L Alkaline Phosphatase 81 (38-126) U/L Troponin I (0.000-0.034) ng/mL Serum Total Protein 7.5 (6.3-8.2) g/dL Albumin 4.5 (3.5-5.0) g/dL - Progress Progress Note: 08/23/23 08:15 Assumed care from previous ER doctor at 7 AM. Patient is alert and oriented x 3 in no apparent distress. Lungs are clear to auscultation bilaterally. Heart-sinus tach without murmur Abdomen-obese, soft, good bowel sounds, nontender to palpation Neuro-no focal weakness/cranial nerves II through XII intact/reflexes symmetric EKG-sinus tach/rate 105/normal QT-QTc/nonspecific ST-T wave changes/artifact present. 08/23/23 08:19 D-dimer and troponin are negative 08/23/23 10:26 CTA of chest is negative for PE and pneumonia. Patient's troponin is negative x 2. Heart score is 2. Pain is atypical in nature and most likely due to resolving COVID-19 without evidence of pneumonia. Patient discharged to follow-up with his PCP. Counseled pt/family regarding: lab results, diagnosis, need for follow-up, rad results Medical Desision Making - Social Determinants of Health Pt's dx & treatment plan are significantly limited by SDOH: Unemployed (Patient on disability due to PTSD.) - Diagnostic Testing Diagnostic test were ordered, analyzed, and reviewed by me: Yes Radiological Interpretation: Reviewed by me - Risk of complications Low Risk: Low risk of morbidity from additional dx testing or treatment - Departure Departure Disposition: Home Critical Care Time: No
[2023-08-23 06:30] LABS: Absolute Neutrophil Ct (ANC) 10.94 x10^3/uL (1.4-6.9); BASOPHIL % 0.2 % (0.0-0.4); Basophil (Absolute #) 0.02 x10^3/uL (0-0.4); Eosinophil % 0.1 % (0.00-5.0); Eosinophil (Absolute #) 0.01 x10^3/uL (0-0.5); Hemoglobin 17.1 g/dL (12.5-18.0); IMMATURE GRAN # 0.07 x10^3u/L (0.00-0.03); IMMATURE GRAN % 0.5 % (0.00-0.4); Lymphocyte (Absolute #) 1.53 x10^3/uL (1.0-4.6); Lymphocytes % 11.7 % (24.0-44.0); Mean Cell Volume 89.2 fL (78-100); Mean Corpuscular Hemoglobin 29.9 pg (26-32); Mean Corpuscular Hgb Concent. 33.5 g/dL (32-36); Mean Platelet Volume 10.7 fL (7.5-11.0); Monocyte (Absolute #) 0.52 x10^3/uL (0.0-1.3); Neutrophil % 83.5 % (36.0-66.0); Platelet Count 256 x10^3/uL (150-450); Red Blood Count 5.72 x10^6/uL (4.1-5.6); Red Cell Distribution Width 12.7 % (11.5-14.0); White Blood Count 13.1 x10^3/uL (4.0-10.5)
[2023-08-23 06:49] LABS: ALBUMIN 4.5 g/dL (3.5-5.0); ANION GAP 16.4 MEQ/L (5-15); Calcium 9.8 mg/dL (8.4-10.2); Creatinine 1 0.73 mg/dL (0.66-1.25); EST GLOMERULAR FILTRATION RATE 129.5 ML/MIN; Potassium 4.2 mmol/L (3.5-5.1); Total Protein 7.5 g/dL (6.3-8.2)
[2023-08-23 06:52] LABS: D-DIMER QUANTITATIVE < 0.19 mg/L (0.0-0.50); PROTIME 10.9 SECONDS (9.4-12.5); PTT 25.4 SECONDS (25.1-36.5)
--- NOTE | 2023-08-23 07:57 | XRAY ---
CLINICAL HISTORY:dyspnea COMPARISON:None TECHNIQUE:X-ray of the chest frontal projection. AP portable FINDINGS: A radiographic examination of the chest demonstrates clear lungs. Normal configuration of the mediastinum. The susana are normal in size and position. The cardiac size is normal. The bony thorax is unremarkable. The costophrenic and cardiophrenic angles are clear. Chest leads are seen in place. IMPRESSION: Unremarkable x-ray of the chest. Electronically Signed by: Herlinda White MD. (08/23/2023 07:53:45 EST)
--- NOTE | 2023-08-23 09:53 | XRAY ---
CLINICAL HISTORY:PE COMPARISON:Same-day chest x-ray reviewed. TECHNIQUE:Contiguous axial CT images of the chest were acquired with the administration of intravenous contrast CTPA protocol. Coronal and sagittal reconstructions were obtained. Limited evaluation due to suboptimal contrast bolus timing /image acquisition time. FINDINGS: The main pulmonary artery, branches, and segmental branches appear unremarkable without definite evidence of a filling defect to suggest pulmonary embolism. The scanned pulmonary parenchyma shows no definite consolidative lesions. No free or encysted pleural effusion. Heart size is normal, and there is no pericardial effusion. No pathologically enlarged mediastinal, hilar or axillary lymph node identified. There is no definite mass lesion in the chest wall. The scanned upper abdomen is unremarkable. Mild degenerative changes noted in the spine. IMPRESSION: Limited evaluation due to suboptimal contrast bolus /image acquisition time. No definite evidence of pulmonary embolism in the provided images. No evidence of radiologically significant abnormality identified. Electronically Signed by: Herlinda White MD. (08/23/2023 09:49:37 EST)
[2023-08-23 10:26] VITALS: BP 126/74; PULSE 93; RESP 13; O2SAT 95
== END 2023-08-23 10:35 | disposition home or self-care (01) ==
LOC: ED 05:47
DX: R07.9 Chest pain, unspecified (principal); R06.00 Dyspnea, unspecified; R05.9 Cough, unspecified; R06.02 Shortness of breath; Z79.52 Long term (current) use of systemic steroids; Z79.899 Other long term (current) drug therapy; Z28.310 Unvaccinated for COVID-19; Z56.0 Unemployment, unspecified; Z86.16 Personal history of COVID-19
CPT/HCPCS: 36000; 36415; 71045; 71260; 80053; 84484; 85025; 85379; 85610; 85730; 93005; 93041; 99284

== ENCOUNTER 2023-10-06 19:54 | Emergency (ER) | payer OTHER ==
--- NOTE | 2023-10-06 20:02 | ERPHSYRPT ---
- History of Present Illness Time Seen by Provider: 10/06/23 20:02 Source: patient Exam Limitations: no limitations Physician History: This is a 23-year-old white male patient who has severe anxiety and panic attacks and presents with sudden onset of left arm achiness. He denies chest pain. He has some mild shortness of breath. He had mid, substernal central chest pain that did not radiate a few days ago but since then he has not. Patient feels as though his psychiatric medications are not as they should be. However, he feels this might be a panic attack but he did not take his as needed lorazepam as prescribed. He did say in the last few days he has also had sinus congestion and a mild cough. When the onset of left arm achiness, without traumatic injury, came on so suddenly, he was concerned about a myocardial infarction. Patient has no documented coronary artery disease. He does not see a research aide. Occurred: just prior to arrival Method of Injury: other Quality: aching (No injury) Severity of Pain-Max: mild Severity of Pain-Current: none Extremities Pain Location: arm: left Modifying Factors: Improves With: nothing Associated Symptoms: none Allergies/Adverse Reactions: erythromycin base [Erythromycin Base] Allergy (Intermediate, Verified 10/06/23 20:12) Hives RASH latex Allergy (Intermediate, Verified 10/06/23 20:12) Hives Home Medications: Escitalopram Oxalate [Lexapro] 20 mg PO DAILY 04/12/20 [History] Lorazepam 0.5 mg [Ativan 0.5 MG] 0.5 mg PO BIDPRN PRN 10/06/23 [History] lisinopriL [Zestril] 2.5 mg PO DAILY 10/06/23 [History] Hx Tetanus, Diphtheria Vaccination/Date Given: Yes Hx Influenza Vaccination/Date Given: No Hx Pneumococcal Vaccination/Date Given: No Travel Risk - International Travel Have you traveled outside of the country in past 3 weeks: No - Coronavirus Screening Are you exhibiting any of the following symptoms?: No Close contact with a COVID-19 positive Pt in past 14-21 Days: No - Vaccine Status Have you recieved a Covid-19 vaccination: No - Review of Systems Constitutional: No Symptoms Eyes: No Symptoms Ears, Nose, & Throat: No Symptoms Respiratory: No Symptoms Cardiac: No Symptoms Abdominal/Gastrointestinal: No Symptoms Genitourinary Symptoms: No Symptoms Musculoskeletal: Other (Left upper arm achiness), No Injury Skin: No Symptoms Neurological: No Symptoms Psychological: Anxiety Endocrine: No Symptoms Hematologic/Lymphatic: No Symptoms Immunological/Allergic: No Symptoms All Other Systems: Reviewed and Negative - Past Medical History Pertinent Past Medical History: Yes Neurological History: No Pertinent History ENT History: No Pertinent History Cardiac History: No Pertinent History Respiratory History: No Pertinent History Endocrine Medical History: No Pertinent History Musculoskeletal History: No Pertinent History GI Medical History: Irritable Bowel Psycho-Social History: Anxiety, Depression, Other Other Medical History: PTSD, recent covid - Past Surgical History Past Surgical History: No Neuro Surgical History: No Pertinent History Cardiac: No Pertinent History Respiratory: No Pertinent History Gastrointestinal: No Pertinent History Genitourinary: No Pertinent History Musculoskeletal: No Pertinent History - Social History Smoking Status: Never smoker Exposure to second hand smoke: No Drug Use: none Patient Lives Alone: No - Nursing Vital Signs Nursing Vital Signs: Initial Vital Signs Temperature 97.4 F 10/06/23 20:18 Pulse Rate 109 H 10/06/23 20:18 Respiratory Rate 18 10/06/23 20:18 Blood Pressure 134/80 10/06/23 20:18 O2 Sat by Pulse Oximetry 95 10/06/23 20:18 Pain Scale Pain Intensity 3 - Physical Exam General Appearance: no apparent distress, alert, anxiety, obese Eyes, Ears, Nose, Throat Exam: normal ENT inspection, moist mucous membranes Neck Exam: normal inspection, non-tender, supple, full range of motion Cardiovascular/Respiratory Exam: chest non-tender, normal breath sounds, regular rate/rhythm, heart sounds normal, no respiratory distress Abdominal Exam: non-tender Back Exam: normal inspection, normal range of motion, No CVA tenderness, No vertebral tenderness Shoulder Exam: normal inspection, non-tender, no evidence of injury, normal ROM Elbow/Forearm Exam: normal inspection, non-tender, no evidence of injury, normal ROM Wrist Exam: normal inspection, non-tender, no evidence of injury, normal ROM Hand Exam: normal inspection, non-tender, no evidence of injury, normal ROM Neuro/Tendon Exam: normal sensation, normal motor functions, normal tendon functions, responds to pain, no evidence tendon injury Mental Status Exam: alert, oriented x 3, cooperative Skin Exam: normal color, warm, dry SpO2 Interpretation: normal O2 Delivery: Room Air - Course Nursing assessment & vital signs reviewed: Yes Ordered Tests: Active Orders 24 hr Category Date Time Status EKG-ER Only STAT Care 10/06/23 20:46 Active CHEST 1 VIEW (PORTABLE) Stat Exams 10/06/23 20:46 Taken BMP Stat Lab 10/06/23 21:25 Completed CBC W DIFF Stat Lab 10/06/23 21:25 Completed TROPONIN Q4H Lab 10/06/23 21:25 Completed TROPONIN Q4H Lab 10/07/23 01:00 Ordered TROPONIN Q4H Lab 10/07/23 05:00 Ordered Medication Summary Discontinued Medications Generic Name Dose Route Start Last Admin Trade Name Freq PRN Reason Stop Dose Admin Lorazepam 1 mg 10/06/23 20:47 10/06/23 21:05 Lorazepam 1 Mg Tablet PO 10/06/23 20:48 1 mg STAT ONE Administration Lorazepam Confirm 10/06/23 21:03 Lorazepam 1 Mg Tablet Administered 10/06/23 21:04 Dose 1 mg .ROUTE .STK-MED ONE Lab/Rad Data: Laboratory Result Diagrams 10/06/23 21:25 10/06/23 21:25 Laboratory Results 10/06/23 10/06/23 10/06/23 Range/Units 21:30 21:25 21:25 WBC (4.0-10.5) x10^3/uL RBC (4.1-5.6) x10^6/uL Hgb (12.5-18.0) g/dL Hct (42-50) % MCV (78-100) fL MCH (26-32) pg MCHC (32-36) g/dL RDW (11.5-14.0) % Plt Count (150-450) x10^3/uL MPV (7.5-11.0) fL Gran % (36.0-66.0) % Immature Gran % (Auto) (0.00-0.4) % Nucleat RBC Rel Count (0.00-0.1) % Eos # (Auto) (0-0.5) x10^3/uL Immature Gran # (Auto) (0.00-0.03) x10^3u/L Absolute Lymphs (auto) (1.0-4.6) x10^3/uL Absolute Monos (auto) (0.0-1.3) x10^3/uL Absolute Nucleated RBC (0.00-0.01) x10^3u/L Lymphocytes % (24.0-44.0) % Monocytes % (0.0-12.0) % Eosinophils % (0.00-5.0) % Basophils % (0.0-0.4) % Absolute Granulocytes (1.4-6.9) x10^3/uL Basophils # (0-0.4) x10^3/uL Sodium 137 (137-145) mmol/L Potassium 3.7 (3.5-5.1) mmol/L Chloride 105 (98-107) mmol/L Carbon Dioxide 23 (22-30) mmol/L Anion Gap 12.7 (5-15) MEQ/L BUN 8 L (9-20) mg/dL Creatinine 0.80 (0.66-1.25) mg/dL Estimated GFR 126.0 ML/MIN Glucose 108 H (74-106) mg/dL Calcium 9.3 (8.4-10.2) mg/dL Troponin I < 0.012 (0.000-0.034) ng/mL Influenza Type A Ag NEGATIVE (NEGATIVE) Influenza Type B Ag NEGATIVE (NEGATIVE) RSV (PCR) NEGATIVE (NEGATIVE) SARS-CoV-2 (PCR) NEGATIVE (NEGATIVE) 10/06/23 Range/Units 21:25 WBC 10.2 (4.0-10.5) x10^3/uL RBC 5.33 (4.1-5.6) x10^6/uL Hgb 16.0 (12.5-18.0) g/dL Hct 47.9 (42-50) % MCV 89.9 (78-100) fL MCH 30.0 (26-32) pg MCHC 33.4 (32-36) g/dL RDW 13.2 (11.5-14.0) % Plt Count 249 (150-450) x10^3/uL MPV 10.9 (7.5-11.0) fL Gran % 63.3 (36.0-66.0) % Immature Gran % (Auto) 0.3 (0.00-0.4) % Nucleat RBC Rel Count 0.0 (0.00-0.1) % Eos # (Auto) 0.09 (0-0.5) x10^3/uL Immature Gran # (Auto) 0.03 (0.00-0.03) x10^3u/L Absolute Lymphs (auto) 2.90 (1.0-4.6) x10^3/uL Absolute Monos (auto) 0.65 (0.0-1.3) x10^3/uL Absolute Nucleated RBC 0.00 (0.00-0.01) x10^3u/L Lymphocytes % 28.6 (24.0-44.0) % Monocytes % 6.4 (0.0-12.0) % Eosinophils % 0.9 (0.00-5.0) % Basophils % 0.5 (0.0-0.4) % Absolute Granulocytes 6.43 (1.4-6.9) x10^3/uL Basophils # 0.05 (0-0.4) x10^3/uL Sodium (137-145) mmol/L Potassium (3.5-5.1) mmol/L Chloride (98-107) mmol/L Carbon Dioxide (22-30) mmol/L Anion Gap (5-15) MEQ/L BUN (9-20) mg/dL Creatinine (0.66-1.25) mg/dL Estimated GFR ML/MIN Glucose (74-106) mg/dL Calcium (8.4-10.2) mg/dL Troponin I (0.000-0.034) ng/mL Influenza Type A Ag (NEGATIVE) Influenza Type B Ag (NEGATIVE) RSV (PCR) (NEGATIVE) SARS-CoV-2 (PCR) (NEGATIVE) - Progress Progress: unchanged, re-examined Progress Note: 10/06/23 20:59 This patient's medical issue is 1 of moderate complexity. The level complex in the workup performed is based on review the patient's past medical history, review patient's medication list, review of the patient's drug allergy list, history present illness and physical findings on examination. The workup in this patient includes twelve-lead EKG, CBC, BMP, troponin level and chest x-ray. We will also provide the patient with 1 mg oral Ativan. 10/06/23 22:12 I interpreted the chest x-ray in this patient. There is no evidence of any acute cardiopulmonary process. I interpreted the laboratory results that have returned. There is no evidence of any acute, emergent medical issue based on the patient's labs at this point. We are awaiting the viral swab results to return. Counseled pt/family regarding: lab results, diagnosis, need for follow-up, rad results Medical Desision Making - Independent Historian Additional History obtained from: Mother - Diagnostic Testing Diagnostic test were ordered, analyzed, and reviewed by me: Yes Radiological Interpretation: Interpreted by me - Risk of complications Minimal Risk: Minimal risk of morbidity - Departure Departure Disposition: Home Clinical Impression: Left arm pain, Anxiety about health Condition: Stable Critical Care Time: No Referrals: MANAN DANIEL [Primary Care Provider] - Follow up/PCP as directed Additional Instructions: Drink plenty of fluids. May use Tylenol and ibuprofen for pain control. Keep your appointment with your prescribing provider who will review your medications and make adjustments as needed.
[2023-10-06 20:46] VITALS: TEMP 97.4
[2023-10-06] MEDS ORDERED: Ativan 1 MG PO ONE (20:47)
[2023-10-06] MEDS ORDERED: Ativan 1 MG ONE (21:03)
[2023-10-06 21:33] LABS: Absolute Neutrophil Ct (ANC) 6.43 x10^3/uL (1.4-6.9); BASOPHIL % 0.5 % (0.0-0.4); Basophil (Absolute #) 0.05 x10^3/uL (0-0.4); Eosinophil % 0.9 % (0.00-5.0); Eosinophil (Absolute #) 0.09 x10^3/uL (0-0.5); Hematocrit 47.9 % (42-50); IMMATURE GRAN # 0.03 x10^3u/L (0.00-0.03); IMMATURE GRAN % 0.3 % (0.00-0.4); Lymphocytes % 28.6 % (24.0-44.0); Mean Cell Volume 89.9 fL (78-100); Mean Corpuscular Hgb Concent. 33.4 g/dL (32-36); Mean Platelet Volume 10.9 fL (7.5-11.0); Monocyte (Absolute #) 0.65 x10^3/uL (0.0-1.3); Monocytes % 6.4 % (0.0-12.0); Neutrophil % 63.3 % (36.0-66.0); Platelet Count 249 x10^3/uL (150-450); Red Blood Count 5.33 x10^6/uL (4.1-5.6); Red Cell Distribution Width 13.2 % (11.5-14.0); White Blood Count 10.2 x10^3/uL (4.0-10.5)
[2023-10-06 21:49] LABS: ANION GAP 12.7 MEQ/L (5-15); Calcium 9.3 mg/dL (8.4-10.2); Creatinine 1 0.8 mg/dL (0.66-1.25); Potassium 3.7 mmol/L (3.5-5.1)
[2023-10-06 22:13] LABS: INFLUENZA A NEGATIVE (NEGATIVE); INFLUENZA B NEGATIVE (NEGATIVE); RESPIRATORY SYNCTIAL VIRUS NEGATIVE (NEGATIVE); SARS-CoV-2 Xpert Express NEGATIVE (NEGATIVE)
[2023-10-06 22:55] VITALS: BP 118/58; PULSE 89; RESP 16; O2SAT 96
--- NOTE | 2023-10-07 08:43 | XRAY ---
Indication: Cough. Panic attack. Comparison: August 23, 2023 Portable chest again demonstrates normal heart, lungs, and bony thorax.
== END 2023-10-06 22:52 | disposition home or self-care (01) ==
LOC: ED 19:54
DX: M79.602 Pain in left arm (principal); F45.9 Somatoform disorder, unspecified; R05.1 Acute cough; Z79.899 Other long term (current) drug therapy; Z28.310 Unvaccinated for COVID-19; Z86.16 Personal history of COVID-19
CPT/HCPCS: 0241U; 36415; 71045; 80048; 84484; 85025; 93005; 99283; A9270-GY